=== PATIENT | male | born 1965 | race Caucasian/White ===

== ENCOUNTER 2018-06-18 04:09 | Emergency (ER) | payer OTHER, MEDICARE, MEDICAID ==
[~2018-06-18] VITALS: Ht 177.8 cm; Wt 92.0 kg
--- NOTE | 2018-06-18 04:56 | NUR ---
DR MANDUJANO AT BEDSIDE WITH PT
[2018-06-18] MEDS ORDERED: morphine 4 MG/ML inj SYRINge IV ONE (05:05)
[2018-06-18] MEDS ORDERED: ondansetron 4mg rapidly disintigrating tab PO ONE (05:05)
[2018-06-18] MEDS ORDERED: HYDR-3965 PO (06:52)
[2018-06-18] MEDS ORDERED: METH500T PO (06:52)
[2018-06-18] MEDS ORDERED: ONDA4TAB6 PO (06:52)
[2018-06-18 07:04] VITALS: BP 108/68
== END 2018-06-18 07:06 | disposition home or self-care (01) ==
LOC: ER 04:10
DX: S06.0X0A Concussion without loss of consciousness, initial encounter (principal); S00.81XA Abrasion of other part of head, initial encounter; S50.812A Abrasion of left forearm, initial encounter; M79.18 Myalgia, other site; G89.29 Other chronic pain; R07.89 Other chest pain; Z88.5 Allergy status to narcotic agent; Z79.899 Other long term (current) drug therapy; W22.8XXA Striking against or struck by other objects, initial encounter; Y93.89 Activity, other specified; Y92.89 Other specified places as the place of occurrence of the external cause; Y99.8 Other external cause status
CPT/HCPCS: 70450; 71045; 72125; 93005; 96374; 99284; J2270

== ENCOUNTER 2019-08-14 02:31 | Emergency (ER) | payer MEDICARE, MEDICAID ==
[~2019-08-14] VITALS: Ht 177.8 cm; Wt 100.0 kg
[~2019-08-14 02:31] MED LIST: METH500T PO; ONDA4TAB6 PO
[2019-08-14] MEDS ORDERED: normal saline 1000ML IV soln IVB ONE ×2 (02:40→06:30)
[2019-08-14 03:53] LABS: ALANINE AMINOTRANSFERASE 34 U/L (12-78); ALBUMIN 3.8 G/DL (3.4-5.0); ALBUMIN/GLOBULIN RATIO 0.9 (1.1-1.5); ALKALINE PHOSPHATASE 109 IU/L (46-116); ANION GAP 10 (8-16); ASPARTATE AMINO TRANSFERASE 21 U/L (10-37); BILIRUBIN,TOTAL 0.5 MG/DL (0.1-1.0); BLOOD UREA NITROGEN 3 MG/DL (7-18); BUN/CREATININE RATIO 2.5 (5.4-32.0); CALCIUM 8.9 MG/DL (8.5-10.1); CHLORIDE 105 MMOL/L (99-107); GLUCOSE 138 MG/DL (70-104); LIPASE 98 U/L (73-393); POTASSIUM 3.8 MMOL/L (3.5-5.1); SODIUM 140 MMOL/L (135-145); TOTAL CARBON DIOXIDE 25.2 MMOL/L (24-32); TOTAL PROTEIN 8.1 G/DL (6.4-8.2); eGFR 63 ML/MIN
[2019-08-14] MEDS ORDERED: normal saline 1000ML IV soln IV ONE (04:20)
[2019-08-14] MEDS ORDERED: ondansetron/PF 4mg/2ml inj IV PRN (04:20)
[2019-08-14] MEDS: morphine 4 MG/ML inj SYRINge IV PRN ×3 (04:23→06:41)
[2019-08-14 04:33] LABS: BASOPHILS # (AUTO) 0.1 X10'3 (0-0.2); EOSINOPHILS # (AUTO) 0.3 X10'3 (0-0.9); LYMPHOCYTES # (AUTO) 3.2 X10'3 (1.1-4.8)
[2019-08-14 04:36] LABS: BASOPHILS % (AUTO) 0.9 % (0-1); EOSINOPHILS % (AUTO) 2.3 % (0-6); HEMATOCRIT 51.1 % (42.0-52.0); LYMPHOCYTES % (AUTO) 23.6 % (21-51); MEAN CORPUSCULAR HEMOGLOBIN 30.5 PG (27.0-31.0); MEAN CORPUSCULAR HGB CONC 33.2 g/dL (33.0-36.5); MEAN CORPUSCULAR VOLUME 91.9 FL (78-98); MEAN PLATELET VOLUME 8.9 FL (7.4-10.4); MONOCYTES # (AUTO) 0.9 X10'3 (0-0.9); MONOCYTES % (AUTO) 6.6 % (2-12); NEUTROPHILS % (AUTO) 66.6 % (42-75); PLATELET COUNT 176 X10'3 (140-440); RED BLOOD COUNT 5.56 X10'6 (4.70-6.10); RED CELL DISTRIBUTION WIDTH 13.4 % (11.5-14.5); WHITE BLOOD COUNT 13.6 X10'3 (4.5-11.0)
--- NOTE | 2019-08-14 06:27 | NUR ---
patient awake in room.
[2019-08-14 07:32] LABS: CLARITY,URINE CLEAR (Clear); COLOR,URINE STRAW (Yellow); GLUCOSE, URINE NEGATIVE (Neg); KETONES,URINE NEGATIVE (Neg); LEUKOCYTE ESTERASE ,URINE NEGATIVE (Neg); NITRITES, URINE NEGATIVE (Neg); OCCULT BLOOD,URINE NEGATIVE (Neg); PROTEIN,URINE NEGATIVE (Neg); UROBILINOGEN,URINE 0.2 E.U/dL (0.2-1.0)
[2019-08-14 07:35] LABS: UA COLLECTION TYPE CLN CATCH MIDSTREAM
[2019-08-14] MEDS ORDERED: buprenorphine/naloxone 8MG-2MG SUBlingual film SL SCH (07:50)
[2019-08-14] MEDS ORDERED: buprenorphine/naloxone 8MG-2MG SUBlingual film SL ONE (07:50)
[2019-08-14] MEDS ORDERED: BUPR1FIL3 SL (09:22)
[2019-08-14 09:38] VITALS: BP 136/87
== END 2019-08-14 09:39 | disposition home or self-care (01) ==
LOC: ER 02:31
DX: K59.00 Constipation, unspecified (principal); F11.23 Opioid dependence with withdrawal; N28.9 Disorder of kidney and ureter, unspecified; G89.29 Other chronic pain; Z88.5 Allergy status to narcotic agent; Z79.899 Other long term (current) drug therapy
CPT/HCPCS: 36415; 74176; 80053; 81003; 83605; 83690; 85025; 96374; 96375; 96376; 99285; J2270; J2405; J7030

== ENCOUNTER 2023-11-10 08:52 | Outpatient (CLI) | payer MEDICARE, MEDICAID ==
[2023-11-10] MEDS ORDERED: iohexol 300mg/ml 100ml inj. ONE (09:36)
== END 2023-11-10 23:59 | disposition home or self-care (01) ==
LOC: RAD 08:52
PROVIDERS: ATTEND Family Medicine
DX: K76.0 Fatty (change of) liver, not elsewhere classified (principal); K57.30 Diverticulosis of large intestine without perforation or abscess without bleeding; R10.0 Acute abdomen
CPT/HCPCS: 74177; Q9967

== ENCOUNTER 2023-12-22 07:35 | Inpatient (IN) | payer MEDICARE, MEDICAID ==
[~2023-12-22] VITALS: Ht 188 cm; Wt 122.7 kg
[2023-12-22] MEDS: CefTRIAXone 2gm/D5W 50ml BAG 50 ML IV ONE (08:06)
[2023-12-22 08:13] LABS: BASOPHILS # (AUTO) 0.1 X10'3 (0-0.2); BASOPHILS % (AUTO) 0.4 % (0-1); EOSINOPHILS # (AUTO) 0.1 X10'3 (0-0.9); EOSINOPHILS % (AUTO) 0.4 % (0-6); HEMATOCRIT 44.9 % (42.0-52.0); HEMOGLOBIN 14.8 g/dl (14.0-17.9); LYMPHOCYTES # (AUTO) 1.1 X10'3 (1.1-4.8); LYMPHOCYTES % (AUTO) 5.8 % (21-51); MEAN CORPUSCULAR HEMOGLOBIN 29.7 PG (27.0-31.0); MEAN CORPUSCULAR HGB CONC 33.1 g/dL (33.0-36.5); MEAN CORPUSCULAR VOLUME 89.9 FL (78-98); MEAN PLATELET VOLUME 8.1 FL (7.4-10.4); MONOCYTES # (AUTO) 0.9 X10'3 (0-0.9); MONOCYTES % (AUTO) 4.7 % (2-12); NEUTROPHILS # (AUTO) 16.5 X10'3 (1.8-7.7); NEUTROPHILS % (AUTO) 88.7 % (42-75); PLATELET COUNT 171 X10'3 (140-440); RED BLOOD COUNT 4.99 X10'6 (4.70-6.10); RED CELL DISTRIBUTION WIDTH 14.2 % (11.5-14.5); WHITE BLOOD COUNT 18.6 X10'3 (4.5-11.0)
[2023-12-22] MEDS: morphine 4 MG/ML inj SYRINge IV ONE (08:13)
[2023-12-22] MEDS: ondansetron/PF 4mg/2ml inj IV ONE (08:13)
[2023-12-22 08:40] LABS: ALANINE AMINOTRANSFERASE 25 U/L (12-78); ALBUMIN 3.3 G/DL (3.4-5.0); ALBUMIN/GLOBULIN RATIO 0.9 (1.1-1.5); ALKALINE PHOSPHATASE 103 IU/L (46-116); ANION GAP 8 (8-16); ASPARTATE AMINO TRANSFERASE 19 U/L (10-37); BILIRUBIN,DIRECT 0.2 MG/DL (0-0.3); BILIRUBIN,TOTAL 0.6 MG/DL (0.1-1.0); BLOOD UREA NITROGEN 5 MG/DL (7-18); BUN/CREATININE RATIO 4.5 (10.0-20.0); CALCIUM 8.3 MG/DL (8.5-10.1); CHLORIDE 100 MMOL/L (99-107); GLUCOSE 117 MG/DL (70-104); MAGNESIUM 1.7 MG/DL (1.5-2.4); SODIUM 134 MMOL/L (135-145); TOTAL CARBON DIOXIDE 26.1 MMOL/L (24-32); TOTAL PROTEIN 7.1 G/DL (6.4-8.2); eCRCL 83 ML/MIN; eGFR 68 ML/MIN
[2023-12-22] MEDS: LIDOcaine 1% W/epiNEPHrine 1:100,000 20ml vial SQ ONE (09:23)
[2023-12-22] MEDS: acetaminophen 1,000mg/100ml IV 100 ML IV ONE (09:30)
[2023-12-22 10:06] LABS: GLUCOSE,CSF 64 MG/DL (40-75); TOTAL PROTEIN,CSF 62 MG/DL (30-60)
[2023-12-22 10:28] LABS: APPEARANCE,CSF CLEAR; CSF SUPERNATANT COLOR COLORLESS
[2023-12-22] MEDS: levoFLOXACIN-Levaquin 750MG/D5 150 ML IV ONE (10:28)
[2023-12-22 10:29] LABS: CSF VOLUME 5.8 ML; TUBE# COUNTED 1
[2023-12-22 10:32] LABS: CSF RBC 29 /CU MM (0); CSF WBC CT 2 /CU MM (0-5)
[2023-12-22 10:33] LABS: APPEARANCE,CSF CLEAR; CSF SUPERNATANT COLOR COLORLESS; CSF VOLUME 5.8 ML; TUBE# COUNTED 4
[2023-12-22 10:34] LABS: CSF RBC 3 /CU MM (0); CSF WBC CT 0 /CU MM (0-5)
[2023-12-22] MEDS ORDERED: acetaminophen 325mg tablet PO PRN (11:45)
[2023-12-22] MEDS ORDERED: magnesium Cl slow-release 64mg tablet PO PRN (11:45)
[2023-12-22] MEDS ORDERED: morphine 2 MG/ML inj. syringe IV PRN (11:45)
[2023-12-22] MEDS ORDERED: potassium Cl 20 mEq SR tablet PO PRN ×2 (11:45)
[2023-12-22] MEDS ORDERED: HYDROcodone/acetaminophen 5mg/325mg tablet PO PRN (11:45)
[2023-12-22] MEDS ORDERED: ondansetron/PF 4mg/2ml inj IV PRN (11:45)
[2023-12-22] MEDS ORDERED: magnesium sulf-water 2g/50mL 50 ML IV PRN (11:45)
[2023-12-22] MEDS ORDERED: potassium Cl 40MEQ/1/2NS 520ml 520 ML IV PRN (11:45)
[2023-12-22] MEDS ORDERED: magnesium sulf-water 4G/100mL 100 ML IV PRN (11:45)
[2023-12-22] MEDS: normal saline 1000ml 1,000 ML IV SCH (12:10)
[2023-12-22] MEDS: azithromycin/NS 500mg/250ml 250 ML IV SCH (12:10)
[2023-12-22 12:11] LABS: URINE AMPHETAMINE SCREEN NEGATIVE (Neg); URINE BARBITUATE SCREEN NEGATIVE (Neg); URINE BENZODIAZEPINES SCREEN POSITIVE (Neg); URINE CANNABINOID SCREEN NEGATIVE (Neg); URINE COCAINE SCREEN NEGATIVE (Neg); URINE METHADONE SCREEN NEGATIVE (Neg); URINE OPIATE SCREEN POSITIVE (Neg); URINE PHENCYCLIDINE SCREEN NEGATIVE (Neg)
[2023-12-22 12:13] LABS: BILIRUBIN,URINE NEGATIVE (Neg); CLARITY,URINE CLEAR (Clear); COLOR,URINE YELLOW (Yellow); GLUCOSE, URINE NEGATIVE (Neg); KETONES,URINE NEGATIVE (Neg); LEUKOCYTE ESTERASE ,URINE NEGATIVE (Neg); NITRITES, URINE NEGATIVE (Neg); OCCULT BLOOD,URINE NEGATIVE (Neg); PROTEIN,URINE NEGATIVE (Neg); UROBILINOGEN,URINE 0.2 E.U/dL (0.2-1.0)
[2023-12-22 12:16] LABS: UA COLLECTION TYPE NON-SPECIFIED
[2023-12-22] MEDS: morphine 2 MG/ML inj. syringe IV PRN (12:46)
[2023-12-22 13:43] LABS: D-DIMER 1.53 MG/L FEU (0-0.50)
[2023-12-22] MEDS: HYDROcodone/acetaminophen 10/325mg tab PO PRN (17:05)
[2023-12-22] MEDS ORDERED: iohexol 350MG/ML 100ml bottle IV ONE (17:13)
[2023-12-22 17:30] VITALS: BP 118/73; PULSE 82; RESP 20; TEMP 98.2; O2SAT 98
[2023-12-22] MEDS: heparin, porcine 5000 units/ml vial SQ SCH (17:39)
[2023-12-22 18:00] VITALS: BP 119/70; PULSE 87; RESP 20; TEMP 97; O2SAT 95
[2023-12-22] MEDS ORDERED: heparin, porcine 5000 units/ml vial SQ SCH (20:00)
[2023-12-22] MEDS: HEPARIN DRIP DVT/PE -**PHARMACIST TO DOSE IV ONE (20:50)
[2023-12-22 22:00] VITALS: BP 113/67; PULSE 87; RESP 19; TEMP 97.9; O2SAT 97
[2023-12-22] MEDS ORDERED: heparin 10,000 units/1 ML INJ IV PRN (22:00)
[2023-12-22] MEDS: MESSAGE TO NURSING IV ONE (22:05)
[2023-12-22] MEDS: heparin 25,000 UNIT/250ml bag 250 ML IV PRN (22:36)
[2023-12-22] MEDS: heparin 10,000 units/1 ML INJ IV ONE (22:37)
[2023-12-22 22:42] LABS: INR 1.1 INR; PROTHROMBIN TIME 11.3 SECONDS (9.0-12.0)
[2023-12-23] VITALS (12 sets, daily range): BP systolic 122–137; BP diastolic 72–98; PULSE 84–107; RESP 14–20; TEMP 97–98.8; O2SAT 90–97
[2023-12-23 06:09] LABS: BASOPHILS # (AUTO) 0.1 X10'3 (0-0.2); BASOPHILS % (AUTO) 0.5 % (0-1); EOSINOPHILS # (AUTO) 0.1 X10'3 (0-0.9); EOSINOPHILS % (AUTO) 1.1 % (0-6); HEMATOCRIT 41.1 % (42.0-52.0); HEMOGLOBIN 13.4 g/dl (14.0-17.9); LYMPHOCYTES # (AUTO) 2.2 X10'3 (1.1-4.8); LYMPHOCYTES % (AUTO) 19.5 % (21-51); MEAN CORPUSCULAR HEMOGLOBIN 29.9 PG (27.0-31.0); MEAN CORPUSCULAR HGB CONC 32.6 g/dL (33.0-36.5); MEAN CORPUSCULAR VOLUME 91.5 FL (78-98); MONOCYTES # (AUTO) 0.8 X10'3 (0-0.9); NEUTROPHILS % (AUTO) 71.9 % (42-75); PLATELET COUNT 164 X10'3 (140-440); RED CELL DISTRIBUTION WIDTH 14.5 % (11.5-14.5); WHITE BLOOD COUNT 11.1 X10'3 (4.5-11.0)
[2023-12-23 06:31] LABS: ALANINE AMINOTRANSFERASE 19 U/L (12-78); ALBUMIN 2.8 G/DL (3.4-5.0); ALBUMIN/GLOBULIN RATIO 0.8 (1.1-1.5); ALKALINE PHOSPHATASE 80 IU/L (46-116); ANION GAP 4 (8-16); ASPARTATE AMINO TRANSFERASE 15 U/L (10-37); BILIRUBIN,TOTAL 0.5 MG/DL (0.1-1.0); BLOOD UREA NITROGEN 7 MG/DL (7-18); BUN/CREATININE RATIO 7.4 (10.0-20.0); CALCIUM 7.8 MG/DL (8.5-10.1); CHLORIDE 105 MMOL/L (99-107); CREATININE 0.95 MG/DL (0.60-1.10); GLUCOSE 87 MG/DL (70-104); POTASSIUM 3.7 MMOL/L (3.5-5.1); SODIUM 138 MMOL/L (135-145); TOTAL CARBON DIOXIDE 28.8 MMOL/L (24-32); TOTAL PROTEIN 6.2 G/DL (6.4-8.2); eCRCL 96 ML/MIN; eGFR 81 ML/MIN
[2023-12-23] MEDS: CefTRIAXone 2gm/D5W 50ml BAG 50 ML IV SCH (08:03)
[2023-12-23] MEDS ORDERED: HYDR8TAB18 PO (09:35)
[2023-12-23] MEDS ORDERED: ESOM40CA66 PO (09:35)
[2023-12-23] MEDS ORDERED: ESOM40CA PO (09:35)
[2023-12-23] MEDS ORDERED: ALPR1TAB7 PO (09:35)
[2023-12-23] MEDS ORDERED: ATOR10TA87 PO (09:35)
[2023-12-23] MEDS ORDERED: VENL75TA4 PO (09:35)
[2023-12-23] MEDS ORDERED: VENL150C58 PO (09:35)
[2023-12-23] MEDS ORDERED: FENT-90 TOP (09:43)
[2023-12-23] MEDS ORDERED: DOCU-148 PO (09:43)
[2023-12-23] MEDS ORDERED: CYCL-1 PO (09:43)
[2023-12-23] MEDS ORDERED: ALBU10.7 INH (09:43)
[2023-12-23] MEDS: MESSAGE TO NURSING IV ONE ×3 (09:45→23:15)
[2023-12-23] MEDS ORDERED: ALBUTEROL SULFATE INH PRN (10:00)
[2023-12-23] MEDS ORDERED: BUDESONIDE INH PRN (10:00)
[2023-12-23] MEDS: atorvastatin 10mg tablet PO SCH (11:08)
[2023-12-23] MEDS: heparin 25,000 UNIT/250ml bag 250 ML IV PRN (11:28)
[2023-12-23] MEDS: fentaNYL 12 MCG/hour patch.TD72 TD SCH (14:31)
[2023-12-23] MEDS: venlafaxine XR 75mg capsule (Q24H) PO SCH (14:35)
[2023-12-23] MEDS: pantoprazole 40mg Tablet.DR PO SCH (14:36)
[2023-12-23] MEDS: venlafaxine 37.5mg tablet PO SCH (14:36)
[2023-12-23] MEDS: cyclobenzaprine 10mg tablet PO PRN (14:41)
[2023-12-23] MEDS: ALPRAZolam 0.5mg tablet PO SCH (16:01)
[2023-12-23] MEDS: HYDROmorphone 2mg tablet PO SCH (16:03)
[2023-12-23] MEDS ORDERED: non-formulary drug (Esomeprazole Magnesium 1 CAP) PO SCH (20:00)
[2023-12-23] MEDS: docusate sod 100mg capsule PO SCH (21:26)
[2023-12-23] MEDS: methylPREDNISolone sod succ/PF 40mg inj. IV SCH (21:29)
[2023-12-23] MEDS: FLU VACC TS2024-25(6MOS UP)/PF 45 MCG/0.5 ML SYRINGE IMVAC ONE (21:41)
[2023-12-23] MEDS: pneumococcal 23-VAL P-sac vacc 25 mcg/0.5ml vial IMVAC ONE (21:47)
[2023-12-23] MEDS: guaiFENesin 200 MG/10 ML oral syrup UD cup PO PRN (22:00)
[2023-12-23] MEDS: albuterol 2.5 MG/3 ML nebule NEB PRN (23:40)
[2023-12-24] VITALS (9 sets, daily range): BP systolic 112–152; BP diastolic 67–90; PULSE 95–108; RESP 14–20; TEMP 96.7–98.1; O2SAT 91–96
[2023-12-24 03:31] LABS: BASOPHILS % (AUTO) 0.2 % (0-1); EOSINOPHILS % (AUTO) 0.1 % (0-6); HEMATOCRIT 38.9 % (42.0-52.0); LYMPHOCYTES # (AUTO) 0.4 X10'3 (1.1-4.8); LYMPHOCYTES % (AUTO) 5.7 % (21-51); MEAN CORPUSCULAR HEMOGLOBIN 30.1 PG (27.0-31.0); MEAN CORPUSCULAR HGB CONC 33.4 g/dL (33.0-36.5); MEAN CORPUSCULAR VOLUME 90.2 FL (78-98); MEAN PLATELET VOLUME 8.4 FL (7.4-10.4); MONOCYTES # (AUTO) 0.1 X10'3 (0-0.9); MONOCYTES % (AUTO) 1.1 % (2-12); NEUTROPHILS # (AUTO) 6.7 X10'3 (1.8-7.7); NEUTROPHILS % (AUTO) 92.9 % (42-75); PLATELET COUNT 143 X10'3 (140-440); RED BLOOD COUNT 4.31 X10'6 (4.70-6.10); RED CELL DISTRIBUTION WIDTH 14.2 % (11.5-14.5); WHITE BLOOD COUNT 7.2 X10'3 (4.5-11.0)
[2023-12-24 03:42] LABS: ALANINE AMINOTRANSFERASE 24 U/L (12-78); ALBUMIN 2.9 G/DL (3.4-5.0); ALBUMIN/GLOBULIN RATIO 0.8 (1.1-1.5); ALKALINE PHOSPHATASE 85 IU/L (46-116); ANION GAP 10 (8-16); ASPARTATE AMINO TRANSFERASE 16 U/L (10-37); BILIRUBIN,TOTAL 0.3 MG/DL (0.1-1.0); BLOOD UREA NITROGEN 5 MG/DL (7-18); BUN/CREATININE RATIO 4.5 (10.0-20.0); CALCIUM 7.9 MG/DL (8.5-10.1); CHLORIDE 105 MMOL/L (99-107); CREATININE 1.11 MG/DL (0.60-1.10); GLUCOSE 240 MG/DL (70-104); POTASSIUM 3.9 MMOL/L (3.5-5.1); SODIUM 138 MMOL/L (135-145); TOTAL CARBON DIOXIDE 23.3 MMOL/L (24-32); TOTAL PROTEIN 6.7 G/DL (6.4-8.2); eCRCL 82 ML/MIN; eGFR 68 ML/MIN
[2023-12-24] MEDS: MESSAGE TO NURSING IV ONE (04:34)
[2023-12-24] MEDS: MESSAGE TO NURSING IV NR (10:00)
[2023-12-24] MEDS ORDERED: glucagon, human recombinant 1mg kit SUBCUT PRN (10:15)
[2023-12-24] MEDS ORDERED: dextrose 50%-water 50ml dispensing syringe IV PRN ×2 (10:15)
[2023-12-24] MEDS ORDERED: DEXTROSE 15 GM of carb/4 tabs (each vial/BOTTLE has 4 tablets) PO PRN ×2 (10:15)
[2023-12-24 10:54] LABS: HEMOGLOBIN A1C 5.6 % (4.5-6.2)
[2023-12-24] MEDS: INSULIN LISPRO 100 UNIT/ML INSULN.PEN MULTI-DOSE SQ SCH (12:00)
[2023-12-24] MEDS: apixaban 5mg tablet PO SCH (14:34)
[2023-12-24] MEDS: HYDROmorphone 2mg tablet PO SCH (15:59)
[2023-12-24] MEDS: acetaminophen 325mg tablet PO PRN (21:25)
[2023-12-25 06:00] VITALS: BP 111/78; PULSE 111; RESP 20; TEMP 97.6; O2SAT 92
[2023-12-25 06:02] LABS: EOSINOPHILS % (AUTO) 0 % (0-6); LYMPHOCYTES # (AUTO) 1.2 X10'3 (1.1-4.8); MEAN PLATELET VOLUME 8.6 FL (7.4-10.4); MONOCYTES # (AUTO) 0.8 X10'3 (0-0.9); MONOCYTES % (AUTO) 5.2 % (2-12)
[2023-12-25 06:08] LABS: BASOPHILS % (AUTO) 0 % (0-1); HEMATOCRIT 40.6 % (42.0-52.0); HEMOGLOBIN 13.3 g/dl (14.0-17.9); LYMPHOCYTES % (AUTO) 7.6 % (21-51); MEAN CORPUSCULAR HEMOGLOBIN 29.8 PG (27.0-31.0); MEAN CORPUSCULAR HGB CONC 32.7 g/dL (33.0-36.5); NEUTROPHILS # (AUTO) 13.8 X10'3 (1.8-7.7); NEUTROPHILS % (AUTO) 87.2 % (42-75); PLATELET COUNT 218 X10'3 (140-440); RED BLOOD COUNT 4.46 X10'6 (4.70-6.10); RED CELL DISTRIBUTION WIDTH 14.6 % (11.5-14.5); WHITE BLOOD COUNT 15.8 X10'3 (4.5-11.0)
[2023-12-25 06:10] VITALS: RESP 16
[2023-12-25 06:25] LABS: ALANINE AMINOTRANSFERASE 41 U/L (12-78); ALBUMIN 3.1 G/DL (3.4-5.0); ALBUMIN/GLOBULIN RATIO 0.8 (1.1-1.5); ALKALINE PHOSPHATASE 85 IU/L (46-116); ANION GAP 15 (8-16); ASPARTATE AMINO TRANSFERASE 32 U/L (10-37); BILIRUBIN,TOTAL 0.3 MG/DL (0.1-1.0); BLOOD UREA NITROGEN 6 MG/DL (7-18); BUN/CREATININE RATIO 6.3 (10.0-20.0); CALCIUM 8.4 MG/DL (8.5-10.1); CHLORIDE 106 MMOL/L (99-107); CREATININE 0.96 MG/DL (0.60-1.10); GLUCOSE 107 MG/DL (70-104); POTASSIUM 3.8 MMOL/L (3.5-5.1); SODIUM 143 MMOL/L (135-145); TOTAL CARBON DIOXIDE 22.2 MMOL/L (24-32); eCRCL 95 ML/MIN; eGFR 80 ML/MIN
[2023-12-25 07:17] LABS: LARGE PLATELETS FEW; PLATELET ESTIMATE NORMAL
[2023-12-25] MEDS ORDERED: azithromycin 250mg tablet PO SCH (08:00)
[2023-12-25] MEDS ORDERED: GUAI100L97 PO (10:36)
[2023-12-25] MEDS ORDERED: CEFD300C3 PO (10:36)
[2023-12-25] MEDS ORDERED: APIX5TAB3 PO (12:36)
[2023-12-25] MEDS ORDERED: PRED10TA PO (12:48)
[2023-12-26 11:14] LABS: CSF WEST NILE VIRUS, IGG Negative (Negative); CSF WEST NILE VIRUS, IGM Negative (Negative)
== END 2023-12-25 15:09 | disposition home health service (06) | DRG 871 ==
LOC: ER 07:36 → ED HOLD 11:47 → UNDOADMIN 11:47 → ED HOLD 13:32 → PCU 3S 17:15 → ED HOLD 17:15 → PCU 3S 12-23 00:26 → SUR 3N 12-23 00:26
PROVIDERS: ADMIT Internal Medicine; ATTEND Internal Medicine
PROC: B32T1ZZ Computerized Tomography (CT Scan) of Left Pulmonary Artery using Low Osmolar Contrast (ICD-10-PCS; principal; 2023-12-22)
PROC: B3201ZZ Computerized Tomography (CT Scan) of Thoracic Aorta using Low Osmolar Contrast (ICD-10-PCS; 2023-12-22)
PROC: B32S1ZZ Computerized Tomography (CT Scan) of Right Pulmonary Artery using Low Osmolar Contrast (ICD-10-PCS; 2023-12-22)
PROC: 009U3ZX Drainage of Spinal Canal, Percutaneous Approach, Diagnostic (ICD-10-PCS; 2023-12-22)
PROC: 3E0234Z Introduction of Serum, Toxoid and Vaccine into Muscle, Percutaneous Approach (ICD-10-PCS; 2023-12-23)
PROC: 3E02340 Introduction of Influenza Vaccine into Muscle, Percutaneous Approach (ICD-10-PCS; 2023-12-23)
DX: A41.9 Sepsis, unspecified organism (principal); I26.99 Other pulmonary embolism without acute cor pulmonale; J18.9 Pneumonia, unspecified organism; N17.0 Acute kidney failure with tubular necrosis; E78.5 Hyperlipidemia, unspecified; G89.29 Other chronic pain; M54.9 Dorsalgia, unspecified; Z88.5 Allergy status to narcotic agent; Z79.899 Other long term (current) drug therapy; Z23 Encounter for immunization
CPT/HCPCS: 36415; 70450; 71045; 71275; 80048; 80053; 80076; 80305; 81003; 82945; 82948; 83036; 83605; 83735; 84145; 84157; 84166; 85008; 85025; 85379; 85610; 85651; 85730; 86335; 86592; 86617; 86788; 86789; 87015; 87040; 87070; 87081; 89051; 90686; 90732; 93005; 93306; 93970; 94640; 94760; 96365; 96367; 97116; 97161; 97530; 99291; A6258; G0378; J0131; J0456; J0696; J1644; J1815; J1956; J2270; J2405; J2919; J7030; Q9967

== ENCOUNTER 2024-03-31 04:47 | Inpatient (IN) | payer MEDICARE, MEDICAID ==
[~2024-03-31] VITALS: Ht 177.8 cm; Wt 126.0 kg
[~2024-03-31 04:47] MED LIST changes: +ALBU10.7 INH; +ALPR1TAB7 PO; +APIX5TAB3 PO; +ATOR10TA87 PO; +CEFD300C3 PO; +CYCL-1 PO; +DOCU-148 PO; +ESOM40CA PO; +FENT-90 TOP; +GUAI100L97 PO; +HYDR8TAB18 PO; +PRED10TA PO; +VENL150C58 PO; +VENL75TA4 PO
[2024-03-31] MEDS: ringers solution, lacted 1,000 ML IV ONE ×2 (05:03→06:09)
[2024-03-31] MEDS: acetaminophen 325mg tablet PO ONE (05:06)
[2024-03-31 05:16] LABS: BASOPHILS % (AUTO) 0.3 % (0-1); EOSINOPHILS # (AUTO) 0.1 X10'3 (0-0.9); EOSINOPHILS % (AUTO) 0.8 % (0-6); HEMATOCRIT 48.1 % (42.0-52.0); HEMOGLOBIN 15.7 g/dl (14.0-17.9); LYMPHOCYTES # (AUTO) 1.8 X10'3 (1.1-4.8); LYMPHOCYTES % (AUTO) 10.5 % (21-51); MEAN CORPUSCULAR HEMOGLOBIN 29.9 PG (27.0-31.0); MEAN CORPUSCULAR HGB CONC 32.6 g/dL (33.0-36.5); MEAN CORPUSCULAR VOLUME 91.8 FL (78-98); MEAN PLATELET VOLUME 8.7 FL (7.4-10.4); MONOCYTES # (AUTO) 0.7 X10'3 (0-0.9); MONOCYTES % (AUTO) 4.3 % (2-12); NEUTROPHILS # (AUTO) 14.7 X10'3 (1.8-7.7); NEUTROPHILS % (AUTO) 84.1 % (42-75); PLATELET COUNT 194 X10'3 (140-440); RED BLOOD COUNT 5.24 X10'6 (4.70-6.10); RED CELL DISTRIBUTION WIDTH 15.1 % (11.5-14.5); WHITE BLOOD COUNT 17.4 X10'3 (4.5-11.0)
[2024-03-31] MEDS: ketorolac trometh 30MG/ML vial 30 MG/ML VIAL IV ONE (05:17)
[2024-03-31 06:04] LABS: BILIRUBIN,URINE NEGATIVE (Neg); CLARITY,URINE CLEAR (Clear); COLOR,URINE YELLOW (Yellow); GLUCOSE, URINE NEGATIVE (Neg); KETONES,URINE NEGATIVE (Neg); LEUKOCYTE ESTERASE ,URINE NEGATIVE (Neg); NITRITES, URINE NEGATIVE (Neg); OCCULT BLOOD,URINE NEGATIVE (Neg); PROTEIN,URINE NEGATIVE (Neg); UROBILINOGEN,URINE 0.2 E.U/dL (0.2-1.0)
[2024-03-31 06:17] LABS: ALANINE AMINOTRANSFERASE 23 U/L (12-78); ALBUMIN 3.6 G/DL (3.4-5.0); ALBUMIN/GLOBULIN RATIO 0.9 (1.1-1.5); ALKALINE PHOSPHATASE 94 IU/L (46-116); ANION GAP 11 (8-16); ASPARTATE AMINO TRANSFERASE 21 U/L (10-37); BILIRUBIN,TOTAL 0.5 MG/DL (0.1-1.0); BLOOD UREA NITROGEN 7 MG/DL (7-18); BUN/CREATININE RATIO 6.8 (10.0-20.0); CALCIUM 8.7 MG/DL (8.5-10.1); CHLORIDE 101 MMOL/L (99-107); CREATININE 1.03 MG/DL (0.60-1.10); GLUCOSE 110 MG/DL (70-104); SODIUM 139 MMOL/L (135-145); TOTAL CARBON DIOXIDE 26.8 MMOL/L (24-32); TOTAL PROTEIN 7.5 G/DL (6.4-8.2); eCRCL 79 ML/MIN; eGFR 74 ML/MIN
[2024-03-31 06:18] LABS: UA COLLECTION TYPE CLN CATCH MIDSTREAM
[2024-03-31 06:25] LABS: PRO BRAIN NATRIURETIC PEPTIDE 49 PG/ML (0-125)
[2024-03-31] MEDS ORDERED: iohexol 350MG/ML 100ml bottle IV ONE (07:04)
[2024-03-31] MEDS: normal saline 1000ml 1,000 ML IV ONE (07:26)
[2024-03-31] MEDS: nicotine 7mg patch - 24hr TD ONE (08:18)
[2024-03-31] MEDS: CefTRIAXone 2gm/D5W 50ml BAG 50 ML IV ONE (08:27)
[2024-03-31] MEDS: azithromycin/NS 500mg/250ml 250 ML IV ONE (08:28)
[2024-03-31] MEDS ORDERED: acetaminophen 325mg tablet PO PRN ×2 (08:50)
[2024-03-31] MEDS ORDERED: ondansetron 4mg rapidly disintigrating tab PO PRN (08:50)
[2024-03-31] MEDS ORDERED: ondansetron/PF 4mg/2ml inj IV PRN (08:50)
[2024-03-31] MEDS ORDERED: mag hydrox/Alum hydrox/simeth 30ml oral suspension PO PRN (08:50)
[2024-03-31] MEDS ORDERED: acetaminophen 650mg rectal suppository RC PRN (08:50)
[2024-03-31] MEDS ORDERED: HYDROcodone/acetaminophen 5mg/325mg tablet PO PRN (08:50)
[2024-03-31] MEDS ORDERED: diphenhydrAMINE 25mg capsule PO PRN (08:50)
[2024-03-31] MEDS ORDERED: diphenhydrAMINE 50 mg/ml inj IV PRN (08:50)
[2024-03-31] MEDS ORDERED: morphine 2 MG/ML inj. syringe IV PRN ×2 (08:50)
[2024-03-31] MEDS ORDERED: bisacodyl 10mg suppository rectal RC PRN (08:50)
[2024-03-31] MEDS ORDERED: HYDROcodone/acetaminophen 10/325mg tab PO PRN (08:50)
[2024-03-31] MEDS ORDERED: magnesium hydroxide 30ml (MOM) UD suspension PO PRN (08:50)
[2024-03-31] MEDS: normal saline 1000ml 1,000 ML IV SCH (09:15)
[2024-03-31 09:36] LABS: MAGNESIUM 1.6 MG/DL (1.5-2.4)
[2024-03-31 09:37] LABS: INR 1.1 INR; PROTHROMBIN TIME 11.3 SECONDS (9.0-12.0)
[2024-03-31 09:45] LABS: HEMOGLOBIN A1C 5.6 % (4.5-6.2)
[2024-03-31 09:52] LABS: APTT 30 SECONDS (22-32)
[2024-03-31] MEDS ORDERED: ATOR10TA70 PO (10:10)
[2024-03-31] MEDS ORDERED: APIX2.5T PO (10:11)
[2024-03-31] MEDS ORDERED: HYDROmorphone 2mg tablet PO PRN (10:55)
[2024-03-31 11:31] LABS: THYROID STIMULATING HORMONE 0.36 ulU/ml (0.34-4.50)
[2024-03-31 12:31] LABS: URINE AMPHETAMINE SCREEN NEGATIVE (Neg); URINE BARBITUATE SCREEN NEGATIVE (Neg); URINE BENZODIAZEPINES SCREEN POSITIVE (Neg); URINE CANNABINOID SCREEN NEGATIVE (Neg); URINE COCAINE SCREEN NEGATIVE (Neg); URINE METHADONE SCREEN NEGATIVE (Neg); URINE OPIATE SCREEN POSITIVE (Neg); URINE PHENCYCLIDINE SCREEN NEGATIVE (Neg)
[2024-03-31 13:13] VITALS: BP 114/76; PULSE 95; RESP 16; TEMP 98; O2SAT 96
[2024-03-31 13:15] VITALS: RESP 16; O2SAT 96
[2024-03-31 13:24] VITALS: RESP 16; O2SAT 96
[2024-03-31] MEDS ORDERED: naloxone 0.4 mg/ml inj IV PRN (15:10)
[2024-03-31] MEDS ORDERED: Neutra Phos packet PO PRN (15:30)
[2024-03-31] MEDS ORDERED: sodium phosphate inj. 30 MMOL in dextrose 5%-water 250 ML IV PRN (15:30)
[2024-03-31] MEDS ORDERED: sodium phosphate inj. 15 MMOL in dextrose 5%-water 250 ML IV PRN (15:30)
[2024-03-31] MEDS: methylPREDNISolone sod succ 125mg/2ml vial IV SCH (15:34)
[2024-03-31 18:00] VITALS: BP 124/79; PULSE 91; RESP 18; TEMP 98.1; O2SAT 92
[2024-03-31] MEDS: docusate sod 100mg capsule PO SCH (19:06)
[2024-03-31] MEDS: HYDROmorphone 2mg tablet PO PRN (19:06)
[2024-03-31 20:00] VITALS: RESP 18; O2SAT 96
[2024-03-31] MEDS ORDERED: temazepam 15mg capsule PO PRN (21:00)
[2024-03-31 22:00] VITALS: BP 157/94; PULSE 99; RESP 13; TEMP 97.1; O2SAT 94
[2024-03-31] MEDS ORDERED: cyclobenzaprine 10mg tablet PO PRN (23:05)
[2024-03-31] MEDS: ALPRAZolam 0.5mg tablet PO SCH (23:19)
[2024-04-01 06:40] VITALS: BP 157/94; PULSE 99; RESP 13; TEMP 97.1; O2SAT 94
[2024-04-01 06:44] LABS: BASOPHILS % (AUTO) 0.2 % (0-1); EOSINOPHILS % (AUTO) 0 % (0-6); HEMATOCRIT 41.3 % (42.0-52.0); HEMOGLOBIN 13.9 g/dl (14.0-17.9); LYMPHOCYTES # (AUTO) 0.7 X10'3 (1.1-4.8); LYMPHOCYTES % (AUTO) 6.3 % (21-51); MEAN CORPUSCULAR HEMOGLOBIN 30.4 PG (27.0-31.0); MEAN CORPUSCULAR HGB CONC 33.7 g/dL (33.0-36.5); MEAN CORPUSCULAR VOLUME 90.3 FL (78-98); MEAN PLATELET VOLUME 8.8 FL (7.4-10.4); MONOCYTES # (AUTO) 0.2 X10'3 (0-0.9); MONOCYTES % (AUTO) 1.5 % (2-12); NEUTROPHILS # (AUTO) 10.8 X10'3 (1.8-7.7); PLATELET COUNT 172 X10'3 (140-440); RED BLOOD COUNT 4.57 X10'6 (4.70-6.10); RED CELL DISTRIBUTION WIDTH 14.2 % (11.5-14.5); WHITE BLOOD COUNT 11.7 X10'3 (4.5-11.0)
[2024-04-01 07:00] LABS: ALANINE AMINOTRANSFERASE 26 U/L (12-78); ALBUMIN 3.1 G/DL (3.4-5.0); ALBUMIN/GLOBULIN RATIO 0.8 (1.1-1.5); ALKALINE PHOSPHATASE 77 IU/L (46-116); ANION GAP 6 (8-16); ASPARTATE AMINO TRANSFERASE 19 U/L (10-37); BILIRUBIN,TOTAL 0.4 MG/DL (0.1-1.0); BLOOD UREA NITROGEN 6 MG/DL (7-18); BUN/CREATININE RATIO 7.1 (10.0-20.0); CALCIUM 8.2 MG/DL (8.5-10.1); CHLORIDE 105 MMOL/L (99-107); CHOL/HDL RATIO 3.9 (0.00-4.99); CHOLESTEROL 159 MG/DL (0-200); CREATININE 0.84 MG/DL (0.60-1.10); GLUCOSE 198 MG/DL (70-104); HDL CHOLESTEROL 41 MG/DL (35-60); LDL CHOLESTEROL 105 MG/DL (50-100); POTASSIUM 4.3 MMOL/L (3.5-5.1); SODIUM 137 MMOL/L (135-145); TOTAL CARBON DIOXIDE 26.2 MMOL/L (24-32); TOTAL PROTEIN 6.8 G/DL (6.4-8.2); TRIGLYCERIDES 73 MG/DL (20-135); eCRCL 97 ML/MIN; eGFR > 90 ML/MIN
[2024-04-01] MEDS: pantoprazole 40mg Tablet.DR PO SCH ×2 (07:00→07:38)
[2024-04-01] MEDS: venlafaxine XR 75mg capsule (Q24H) PO SCH (07:38)
[2024-04-01] MEDS: atorvastatin 10mg tablet PO SCH (07:39)
[2024-04-01] MEDS: nicotine 21mg patch - 24 hr TD SCH (07:39)
[2024-04-01 08:00] VITALS: RESP 13; O2SAT 94
[2024-04-01] MEDS: CefTRIAXone/D5W-Rocephin 1gm 50 ML IV SCH (08:05)
[2024-04-01] MEDS: azithromycin/NS 500mg/250ml 250 ML IV SCH (09:26)
[2024-04-01 10:00] VITALS: BP 171/97; PULSE 114; RESP 20; TEMP 98.1; O2SAT 96
[2024-04-01] MEDS ORDERED: AMOX-580 PO (12:33)
[2024-04-01 13:21] VITALS: RESP 14
[2024-04-01] MEDS: lactose-reduced food (Ensure High Protein) 237ml bottle PO SCH (13:29)
== END 2024-04-01 13:45 | disposition home or self-care (01) | DRG 871 ==
LOC: ER 04:47 → ED HOLD 08:53 → ORTHO 4S 12:55
PROVIDERS: ADMIT Family Medicine; ATTEND Family Medicine
PROC: BW251ZZ Computerized Tomography (CT Scan) of Chest, Abdomen and Pelvis using Low Osmolar Contrast (ICD-10-PCS; principal; 2024-03-31)
DX: A41.9 Sepsis, unspecified organism (principal); J15.69 Pneumonia due to other Gram-negative bacteria; J96.01 Acute respiratory failure with hypoxia; J15.9 Unspecified bacterial pneumonia; J44.1 Chronic obstructive pulmonary disease with (acute) exacerbation; J44.0 Chronic obstructive pulmonary disease with (acute) lower respiratory infection; E78.5 Hyperlipidemia, unspecified; I50.9 Heart failure, unspecified; Z20.822 Contact with and (suspected) exposure to COVID-19; E66.01 Morbid (severe) obesity due to excess calories; K21.9 Gastro-esophageal reflux disease without esophagitis; I11.0 Hypertensive heart disease with heart failure; G89.4 Chronic pain syndrome; E83.39 Other disorders of phosphorus metabolism; E04.2 Nontoxic multinodular goiter; Z88.5 Allergy status to narcotic agent; Z91.040 Latex allergy status; Z79.01 Long term (current) use of anticoagulants; Z86.711 Personal history of pulmonary embolism; Z72.0 Tobacco use; Z79.899 Other long term (current) drug therapy; Z68.39 Body mass index [BMI] 39.0-39.9, adult
CPT/HCPCS: 36415; 71045; 71260; 74177; 80053; 80061; 80305; 81003; 83036; 83605; 83735; 83880; 84100; 84145; 84443; 84484; 85025; 85610; 85730; 87040; 87081; 87502; 87503; 87811; 93005; 93970; 99291; A4615; A6258; G0378; J0456; J0696; J1885; J2919; J7030; J7120; Q9967